=== PATIENT | female | born 1980 | race Caucasian/White ===

== ENCOUNTER 2019-03-04 09:19 | Emergency (ER) | payer MEDICAID, OTHER ==
[~2019-03-04] VITALS: Ht 157.5 cm; Wt 65.2 kg
[~2019-03-04 09:19] MED LIST: FER325 PO; LEVO125T7 PO; PREN1TAB13 PO
[2019-03-04 09:25] VITALS: BP 100/55; PULSE 71; RESP 18; Ht 157.5 cm; Wt 65.2 kg
--- NOTE | 2019-03-04 12:02 | ERD ---
ER Documentation Chief Complaint Chief Complaint vag bleed , onset last night , 7 weeks preg , lmp 01/13/19 HPI 39-year-old female presents with vaginal spotting since yesterday. She is approximately 7 weeks by dates. She is is minimal suprapubic pain without cramping. She denies fevers, vomiting. She is receiving care. She had an ultrasound last week which she states showed no acute abnormalities. ROS All systems reviewed and are negative except as per history of present illness. Medications Home Meds Reported Medications Ferrous Sulfate* (Ferrous Sulfate*) 325 Mg Tabec, 325 MG PO DAILY, TAB 07/24/14 Vit-Iron Fumarate-FA ( Vitamins Tablet) 1 Tab Tablet, 1 TAB PO DAILY, TAB 07/24/14 Levothyroxine Sodium* (Levothyroxine Sodium*) 125 Mcg Tablet, 125 MCG PO AC BREAKFAST, TAB 07/24/14 Allergies Allergies: Coded Allergies: No Known Allergy (Verified , 08/09/14) PMhx/Soc Hx Alcohol Use: No Hx Substance Use: No Hx Tobacco Use: No Smoking Status: Never smoker FmHx Family History: No diabetes, No coronary disease, No other Physical Exam Vitals Vital Signs Date Temp Pulse Resp B/P (MAP) Pulse Ox O2 O2 Flow FiO2 Time Delivery Rate 03/04/19 97.9 71 18 100/55 99 09:25 (70) Physical Exam Const: No acute distress Head: Atraumatic Eyes: Normal Conjunctiva ENT: Normal External Ears, Nose and Mouth. Neck: Full range of motion. No meningismus. Resp: Clear to auscultation bilaterally Cardio: Regular rate and rhythm, no murmurs Abd: Soft, non tender, non distended. Normal bowel sounds Skin: No petechiae or rashes Back: No midline or flank tenderness Ext: No cyanosis, or edema Neur: Awake and alert Psych: Normal Mood and Affect Result Diagram: 03/04/19 0953 Results 24 hrs Laboratory Tests Test 03/04/19 09:53 White Blood Count 5.2 10^3/ul Red Blood Count 4.59 10^6/ul Hemoglobin 13.5 g/dl Hematocrit 39.8 % Mean Corpuscular Volume 86.7 fl Mean Corpuscular Hemoglobin 29.4 pg Mean Corpuscular Hemoglobin Concent 33.9 g/dl Red Cell Distribution Width 12.2 % Platelet Count 184 10^3/UL Mean Platelet Volume 10.9 fl Immature Granulocytes % 0.200 % Neutrophils % 55.4 % Lymphocytes % 36.2 % Monocytes % 6.6 % Eosinophils % 0.8 % Basophils % 0.8 % Nucleated Red Blood Cells % 0.0 /100WBC Immature Granulocytes # 0.010 10^3/ul Neutrophils # 2.9 10^3/ul Lymphocytes # 1.9 10^3/ul Monocytes # 0.3 10^3/ul Eosinophils # 0.0 10^3/ul Basophils # 0.0 10^3/ul Nucleated Red Blood Cells # 0.0 10^3/ul Urine Color YELLOW Urine Clarity SLIGHTLY CLOUDY Urine pH 7.0 Urine Specific [place] 1.020 Urine Ketones NEGATIVE mg/dL Urine Nitrite NEGATIVE mg/dL Urine Bilirubin NEGATIVE mg/dL Urine Urobilinogen NEGATIVE mg/dL Urine Leukocyte Esterase NEGATIVE Tho/ul Urine Microscopic RBC 3 /HPF Urine Microscopic WBC 4 /HPF Urine Squamous Epithelial Cells FEW /HPF Urine Bacteria FEW /HPF Urine Mucus FEW /HPF Urine Hemoglobin 3+ mg/dL Urine Glucose NEGATIVE mg/dL Urine Total Protein NEGATIVE mg/dl Beta HCG, Quantitative 655206.0 mIU/ml Procedures/MDM Patient is Rh+. Quantitative hCG is 146,000. Pelvic ultrasound shows single live intrauterine approximately 7 weeks 3 days with positive cardiac activity with a rate of 141. There is a small subchorionic hemorrhage. There is a 2.3 cm corpus luteum cyst. Presents with vaginal spotting of early . She has no current signs and symptoms of ectopic . She does have an identifiable live intrauterine . Additional signs and symptoms do not suggest appendicitis, surgical abdomen. She may have early normal or threatened . She will be discharged home with OB follow-up and return precautions for fevers, abdominal pain, worsening bleeding, new worsening symptoms or with OB as directed. The patient was stable with no new complaints during the ER course. Clinically, there is no current evidence to suggest meningitis, sepsis, acute abdomen, pneumonia, stroke, acute coronary syndrome, pulmonary embolism, aortic dissection or any other emergent condition appearing to require further evaluation or hospitalization. Patient counseled regarding my diagnostic impression and care plan. Prior to discharge all questions answered. Pt agrees with treatment plan and understands strict return precautions. Pt is instructed to follow up with primary care provider within 24-48 hours. Precautionary instructions provided including instructions to return to the ER if not improving or for any worsening or changing symptoms or concerns. Disclaimer: Inadvertent spelling and grammatical errors are likely due to EHR/dictation software use and do not reflect on the overall quality of patient care. Also, please note that the electronic time recorded on this note does not necessarily reflect the actual time of the patient encounter. Departure Diagnosis: Primary Impression: Vaginal bleeding in patient at less than 20 weeks ges... Condition: Stable Patient Instructions: Bleeding During Early Referrals: NO PRIMARY,CARE PHYSICIAN (PCP) Additional Instructions: Examines normal hoy. Cheque otro vez con machado doctor primario en el proximo [place] or regresa para mas o nueva simptomas. CIRA TRAN MD Mar 04, 2019 12:02
== END 2019-03-04 12:05 | disposition home or self-care (01) ==
LOC: FTE 09:19
DX: O20.9 Hemorrhage in early pregnancy, unspecified (principal); Z3A.01 Less than 8 weeks gestation of pregnancy
CPT/HCPCS: 36415; 76801; 76817; 81001; 84702; 85025; 86900; 86901

== ENCOUNTER 2019-03-11 19:10 | Emergency (ER) | payer OTHER ==
[~2019-03-11] VITALS: Ht 162.6 cm; Wt 66.3 kg
[2019-03-11 19:17] VITALS: Ht 162.6 cm; Wt 66.3 kg
[2019-03-11] MEDS ORDERED: CALC300T4 PO (21:05)
[2019-03-11] MEDS ORDERED: ONDA4TAB14 PO (21:05)
[2019-03-11] MEDS ORDERED: NITR-58 PO (21:05)
[2019-03-11] MEDS ORDERED: ACET325T33 PO (21:05)
[2019-03-11 21:18] VITALS: BP 110/71; PULSE 71; RESP 16
--- NOTE | 2019-03-11 21:35 | ERD ---
ER Documentation Chief Complaint Chief Complaint pt reports abd pain and 8 wks preg HPI 39-year-old female presenting with abdominal pain in the epigastric region. Patient is about 8 weeks . She is had no vomiting but does feel nauseous. Denies chest pain or shortness of breath. LNMP January 13. Has had vaginal bleeding denies any pelvic pain at today's visit. Patient is being seen for OB care at [facility]. A0. ROS All systems reviewed and are negative except as per history of present illness. Medications Home Meds Active Scripts Calcium Carbonate* (Tums X-Str) 300 Mg Tab.chew, 300 MG PO TID, #60 TAB.CHEW Prov:ANDREY BAIN PA-C 03/11/19 Acetaminophen* (Tylenol*) 325 Mg Tablet, 2 TAB PO Q8 PRN for PAIN AND OR ELEV ATED TEMP, #20 TAB Prov:ANDREY BAIN PA-C 03/11/19 Nitrofurantoin Monohyd Macrocr* (Macrobid*) 100 Mg Capsr, 100 MG PO BID for 14 Days, CAP Prov:ANDREY BAIN PA-C 03/11/19 Ondansetron (Ondansetron Odt) 4 Mg Tab.rapdis, 4 MG PO Q6H PRN for NAUSEA AND/OR VOMITING, #10 TAB Prov:ANDREY BAIN PA-C 03/11/19 Reported Medications Ferrous Sulfate* (Ferrous Sulfate*) 325 Mg Tabec, 325 MG PO DAILY, TAB 07/24/14 Vit-Iron Fumarate-FA ( Vitamins Tablet) 1 Tab Tablet, 1 TAB PO DAILY, TAB 07/24/14 Levothyroxine Sodium* (Levothyroxine Sodium*) 125 Mcg Tablet, 125 MCG PO AC BREAKFAST, TAB 07/24/14 Allergies Allergies: Coded Allergies: No Known Allergy (Verified , 08/09/14) PMhx/Soc Medical and Surgical Hx: pt denies Surgical Hx History of Surgery: No Anesthesia Reaction: No Hx Neurological Disorder: No Hx Respiratory Disorders: No Hx Cardiac Disorders: No Hx Psychiatric Problems: No Hx Miscellaneous Medical Probl: No Hx Alcohol Use: No Hx Substance Use: No Hx Tobacco Use: No Smoking Status: Never smoker FmHx Family History: No diabetes, No coronary disease, No other Physical Exam Vitals Vital Signs Date Temp Pulse Resp B/P (MAP) Pulse Ox O2 O2 Flow FiO2 Time Delivery Rate 03/11/19 98.0 71 16 110/71 98 Room Air 21:18 (84) 03/11/19 99.2 69 16 113/55 98 19:17 (74) Physical Exam GENERAL: The patient is well-appearing, well-nourished, in no acute distress HEENT: Atraumatic. Conjunctivae are pink. Pupils equal, round, and reactive to light. There is no scleral icterus. Tympanic membranes clear bilaterally. Oropharynx clear. CHEST: Clear to auscultation bilaterally. There are no rales, wheezes or rhonchi. HEART: Regular rate and rhythm. No murmurs, clicks, rubs or gallops. ABDOMEN: Normal active bowel sounds. No distention. No organomegaly. Mild tenderness palpation the epigastric region. Result Diagram: 03/11/19200703/11/192007 Results 24 hrs Laboratory Tests Test 03/11/19 20:07 03/11/19 20:08 03/11/19 20:27 Urine Color YELLOW Urine Clarity SLIGHTLY CLOUDY Urine pH 6.0 Urine Specific [place] 1.012 Urine Ketones 1+ mg/dL Urine Nitrite NEGATIVE mg/dL Urine Bilirubin NEGATIVE mg/dL Urine Urobilinogen NEGATIVE mg/dL Urine Leukocyte Esterase 2+ Tho/ul Urine Microscopic RBC 0 /HPF Urine Microscopic WBC 5 /HPF Urine Squamous Epithelial Cells FEW /HPF Urine Bacteria FEW /HPF Urine Mucus FEW /HPF Urine Hemoglobin 2+ mg/dL Urine Glucose NEGATIVE mg/dL Urine Total Protein NEGATIVE mg/dl White Blood Count 5.7 10^3/ul Red Blood Count 4.26 10^6/ul Hemoglobin 12.6 g/dl Hematocrit 37.2 % Mean Corpuscular Volume 87.3 fl Mean Corpuscular Hemoglobin 29.6 pg Mean Corpuscular 33.9 g/dl Hemoglobin Concent Red Cell Distribution Width 12.3 % Platelet Count 194 10^3/UL Mean Platelet Volume 10.8 fl Immature Granulocytes % 0.400 % Neutrophils % 58.0 % Lymphocytes % 34.8 % Monocytes % 5.5 % Eosinophils % 0.9 % Basophils % 0.4 % Nucleated Red Blood Cells % 0.0 /100WBC Immature Granulocytes # 0.020 10^3/ul Neutrophils # 3.3 10^3/ul Lymphocytes # 2.0 10^3/ul Monocytes # 0.3 10^3/ul Eosinophils # 0.1 10^3/ul Basophils # 0.0 10^3/ul Nucleated Red Blood Cells # 0.0 10^3/ul Sodium Level 137 mmol/L Potassium Level 3.8 mmol/L Chloride Level 103 mmol/L Carbon Dioxide Level 25 mmol/L Anion Gap 9 Blood Urea Nitrogen 10 mg/dl Creatinine 0.41 mg/dl Est Glomerular Filtrat > 60 mL/min Rate mL/min Glucose Level 85 mg/dl Calcium Level 8.7 mg/dl Total Bilirubin 0.4 mg/dl Direct Bilirubin 0.00 mg/dl Indirect Bilirubin 0.4 mg/dl Aspartate Amino 20 IU/L Transf (AST/SGOT) Alanine 36 IU/L Aminotransferase (ALT/SGPT) Alkaline Phosphatase 52 IU/L Total Protein 7.2 g/dl Albumin 4.0 g/dl Globulin 3.20 g/dl Albumin/Globulin Ratio 1.25 Lipase 68 U/L POC Beta HCG, Qualitative POSITIVE Procedures/MDM DIAGNOSTIC IMAGING REPORT Patient: MOIN GOMEZ : 1980 Age: 39 Sex: F MR #: [id number] DOS: 03/11/191948 Ordering MD: PRABHA BAIN PA-C Location: [facility] Room/Bed: PROCEDURE: Right upper quadrant abdominal ultrasound. CLINICAL INDICATION: Abdominal pain TECHNIQUE: Whitaker scale and color doppler ultrasound images of the right upper quadrant of the abdomen. COMPARISON: None FINDINGS: Pancreas: Visualized portions appear of normal echogenicity without focal lesions. Liver: Morphology:Normal in size. Contour:Normal, no evidence of nodularity. Echogenicity: Mild coarsening Focal lesions:None. Main portal vein: Patent with hepatopetal flow. Biliary System: Gallbladder wall: Normal thickness. Gallstones: None. Intrahepatic bile ducts: Normal caliber. Common bile duct diameter (mm): 1.2 Kidneys: Right length (cm) : 11.8 Right cortical thickness: Normal. Echogenicity: Normal. Hydronephrosis: None. Renal calculi: None. Focal lesions: None. Free fluid/ascites: None. Other findings: None. IMPRESSION: Normal gallbladder without gallstones. Mild coarsening of the hepatic echotexture may represent early changes of steatosis, cirrhosis, or other diffuse parenchymal process. MDM: 39-year-old female presenting with epigastric pain. Patient ultrasound blood work is within normal limits. Urine shows signs of early infection I will treat with antibiotics. Patient is not having tenderness palpation in the pelvic region I do not feel an ultrasound is indicated at this time. She is not having vaginal bleeding. I have low suspicion for abdominal pain associated with . I have low suspicion for cardiac or pulmonary emergency. Patient is discharged with supportive medications and told to follow-up with primary care within 1 to 2 days for close evaluation. Patient is told symptoms change or worsen to return immediately to the ER. All questions answered at discharge Departure Diagnosis: Primary Impression: Epigastric pain Condition: Stable Patient Instructions: Epigastric Pain (Uncertain Cause) Additional Instructions: FOLLOW UP WITH YOUR PRIMARY CARE PHYSICIAN TOMORROW.Return to this facility if you are not improving as expected. ANDREY BAIN PA-C Mar 11, 2019 21:35
== END 2019-03-11 21:18 | disposition home or self-care (01) ==
LOC: FTE 19:10
DX: O26.891 Other specified pregnancy related conditions, first trimester (principal); R10.13 Epigastric pain; Z3A.08 8 weeks gestation of pregnancy
CPT/HCPCS: 36415; 76705; 80053; 81001; 81025; 83690; 85025; Z7502

== ENCOUNTER 2019-06-03 12:19 | Outpatient (CLI) | payer OTHER ==
[~2019-06-03] VITALS: Ht 157.5 cm; Wt 65.8 kg
[~2019-06-03 12:19] MED LIST changes: +ACET325T33 PO; +CALC300T4 PO; +NITR-58 PO; +ONDA4TAB14 PO
[2019-06-03 12:34] VITALS: Ht 157.5 cm; Wt 65.8 kg
[2019-06-03 12:45] VITALS: BP 100/56; PULSE 75; RESP 18
== END 2019-06-03 16:15 | disposition home or self-care (01) ==
LOC: OBT 12:19 → L-D 12:19 → OBT 16:15
PROVIDERS: ATTEND Obstetrics & Gynecology
DX: O62.9 Abnormality of forces of labor, unspecified (principal); O09.522 Supervision of elderly multigravida, second trimester; Z3A.37 37 weeks gestation of pregnancy
CPT/HCPCS: 76815; 76817; 80307; 81001; 87086; Z7500; G0463